=== PATIENT | female | born 1990 | race Caucasian/White ===

== ENCOUNTER 2023-12-18 11:19 | Emergency (ER) | payer OTHER, SELFPAY ==
[2023-12-18 11:20] VITALS: BP 142/67; PULSE 89; RESP 16; TEMP 36.2; O2SAT 99
--- NOTE | 2023-12-18 11:31 | EX.ED.GENINJ ---
HPI <MANAV Gutierrez - Last Filed: 12/18/23 11:51> History of Present Illness Chief Complaint: Laceration Narrative Narrative: 33-year-old [id number] female states she accidentally cut her right index finger on a kitchen knife. The knuckle area continues to bleed unless she holds direct pressure. She denies weakness numbness or tingling. Tetanus is up-to-date. PFSH <MANAV Gutierrez - Last Filed: 12/18/23 11:51> PFSH Allergy/AdvReac Type Severity Reaction Status Date / Time No Known Allergies Allergy Verified 12/18/23 11:22 Social History Smoking Status: Never smoker ROS <MANAV Gutierrez - Last Filed: 12/18/23 11:51> ROS ED ROS Narrative Neuro: Negative for motor/sensory dysfunction. Skin: Positive for laceration. Musc: Negative for joint pain. EXAM <MANAV Gutierrez - Last Filed: 12/18/23 11:51> Physical Exam Narrative Exam Narrative: CONST: Patient sitting in no acute distress. EYES: Normal inspection. SKIN: 2 cm linear superficial laceration right dorsal index finger just distal to the PIP joint. Slow active bleeding that stopped with pressure. No evidence of tendon injury. EXTREMITIES: Normal appearance, full ROM right hand and digits including index MCP PIP and DIP joints. 2+ radial pulse and brisk cap refill. NEURO: Alert and answering questions appropriately. PSYCH: Normal affect. Const Vital Signs: 12/18/23 11:20 Temperature 97.2 F L Temperature Source Temporal Pulse Rate 89 Respiratory Rate 16 Blood Pressure 142/67 H Blood Pressure Mean 92 Pulse Ox 99 Oxygen Delivery Method Room Air <Dr. Catracho Vicente MD - Last Filed: 12/18/23 11:56> Physical Exam Const Vital Signs: 12/18/23 11:20 Temperature 97.2 F L Temperature Source Temporal Pulse Rate 89 Respiratory Rate 16 Blood Pressure 142/67 H Blood Pressure Mean 92 Pulse Ox 99 Oxygen Delivery Method Room Air PROC <MANAV Gutierrez - Last Filed: 12/18/23 11:51> Procedures Lacerations right index finger middle phalanx: Length: 2 cm Depth: Skin Shape: Linear Prep: Sterile Conditions Laceration repair: Irrigated, Lidocaine and Local Irrigated (ml): 50 Number of Sutures/Keshav: 3 Suture Information: Ethilon and 5-0 MDM <MANAV Gutierrez - Last Filed: 12/18/23 11:51> [facility] Narrative Medical decision making narrative: Patient has a 2 cm laceration on the right index finger dorsal middle phalanx area from a knife. Extremity is neurovascularly intact. During repair was thoroughly examined and there is no evidence of tendon injury. 3 sutures were placed and she tolerated procedure well without complications. Wound care discussed and she was discharged in stable condition. <Dr. Catracho Vicente MD - Last Filed: 12/18/23 11:56> [facility] Treatment and Re-Evaluation Narrative: I have personally performed a face to face assessment of the patient and have reviewed the DEBORAH Note. I performed a substantive portion of the visit including all aspects of the following. My izquierdo findings include: History is [id number] female accidentally cut her right index finger with a kitchen knife. No loss of function or numbness. Exam is 2 cm laceration dorsal radial aspect of the middle phalanx of the right index finger just distal to the PIPJ. No tendons exposed. Brisk venous oozing well-controlled with tourniquet. Medical Decison Making repair as per procedure note, I supervised the procedure. Other additions or changes: [None] Discharge Plan Triage Chief Complaint: Laceration ED Midlevel Provider: Amanda Torres ED Provider: Catracho Vicente Dx/Rx/DC Orders Clinical Impression: Laceration of right index finger Instructions: ED Laceration Extremity Activity Restrictions/Additional Instructions: Keep area clean and have stitches removed in 7 days. Be reevaluated immediately for any signs of infection like redness, swelling, pus. Print Language: Thai Disposition Disposition: Home, Self Care
[2023-12-18] MEDS: Lidocaine 1% (20 ml mdv) 20 ML Vial INFILT (12:07)
[2023-12-18 12:08] VITALS: BP 136/71; PULSE 79; RESP 16; TEMP 36.6; O2SAT 100
== END 2023-12-18 12:09 | disposition home or self-care (01) ==
LOC: ED 12:02
PROVIDERS: Emergency Provider Emergency Medicine; Visit Provider Emergency Medicine
DX: S61.210A Laceration without foreign body of right index finger without damage to nail, initial encounter (principal); W26.0XXA Contact with knife, initial encounter
CPT/HCPCS: 12001; 99282